=== PATIENT | female | born 1955 | race Caucasian/White ===

== ENCOUNTER 2024-10-04 15:14 | Inpatient (IN) | payer MEDICAID, OTHER ==
[~2024-10-04] VITALS: Ht 152.4 cm; Wt 71.0 kg
[~2024-10-04 15:14] MED LIST: ALEN70TA79 PO; CALC-26 PO; CITA10TA88 PO; FOLI1TAB87 PO; GABA-529 PO; LEVO125T8 PO; METO25TA6 PO; MIDO5TAB4 PO; PROT40 MT; SIMV-43 PO
[2024-10-04 16:14] LABS: BASOPHILS % 0.6 % (0.0-2.0); EOSINOPHILS % 4.3 % (0.0-5.0); HEMATOCRIT. 29.7 % (36.0-48.0); HEMOGLOBIN. 9.5 g/dL (12.0-16.0); LYMPHOCYTES % 16.2 % (20.0-50.0); MEAN PLATELET VOLUME 9.6 fl (7.4-10.4); MONOCYTES % 5.3 % (2.0-8.0); NEUTROPHILS % 73.6 % (40.0-76.0); PLATELET 90 x1000/uL (130-400); RED BLOOD CELL COUNT 2.97 mill/uL (4.2-5.4); RED CELL DISTRIBUTION WIDTH 16.4 % (11.6-14.6); WHITE BLOOD COUNT 3.2 x1000/uL (4.5-11.0)
[2024-10-04 16:24] LABS: POTASSIUM 3.8 mEq/L (3.5-5.1)
[2024-10-04 16:25] LABS: CALCIUM 9.5 mg/dL (8.7-10.4)
[2024-10-04 16:31] LABS: BG DEOXYHEMOGLOBIN 72.9 % (0.0-5.0)
[2024-10-04 16:32] LABS: BETA HYDROXYBUTYRATE 0.8 mMol/L (0.0-0.3)
[2024-10-04 16:44] LABS: CREATININE 4.5 mg/dL (0.6-1.0)
[2024-10-04] MEDS: SODIUM CHLORIDE 0.9% 1,000 ML IV ONE (16:49)
[2024-10-04 22:40] VITALS: BP 104/55; PULSE 115; RESP 18; TEMP 36.2
[2024-10-04 23:46] VITALS: BP 104/55; PULSE 115; RESP 18; TEMP 36.2; O2SAT 98
[2024-10-05] MEDS ORDERED: ONDANSETRON HCL 4MG/2ML INJ IV PRN (00:45)
[2024-10-05] MEDS ORDERED: HYDRALAZINE 20MG/ML VIAL IV PRN (00:45)
[2024-10-05] MEDS ORDERED: DEXTROSE 50% WATER 50ML SYRINGE IV PRN (00:45)
[2024-10-05] MEDS ORDERED: HYDROCODONE/ACETAMINOPHEN 5/325MG TABLET PO PRN (00:45)
[2024-10-05] MEDS ORDERED: IPRATROPIUM/ALBUTEROL 0.5-3(2.5)MG/3ML NEB NEB PRN (00:45)
[2024-10-05] MEDS ORDERED: ZOLPIDEM TARTRATE 5MG TABLET PO PRN (00:45)
[2024-10-05] MEDS: INSULIN LISPRO 100 UNITS/ML SUBCUT NR (01:01)
[2024-10-05 04:00] VITALS: BP 95/74; PULSE 89; RESP 18; TEMP 36.1; O2SAT 100
[2024-10-05 07:37] LABS: TROPONIN I HIGH SENSITIVITY 22 ng/L (3.0-34)
[2024-10-05] MEDS: LEVOTHYROXINE SODIUM 125MCG TABLET PO SCH (07:40)
[2024-10-05] MEDS: BLOOD SUGAR DIAGNOSTIC STRIP TEST SCH (07:40)
[2024-10-05] MEDS: INSULIN LISPRO 100 UNITS/ML SUBCUT SCH (07:48)
[2024-10-05 07:55] LABS: HEPATITIS B SURFACE ANTIGEN NEGATIVE (Negative)
[2024-10-05 08:15] VITALS: BP 94/60; PULSE 116; RESP 18; TEMP 36.1; O2SAT 100
[2024-10-05 08:17] LABS: HEPATITIS C AB NON REACTIVE (Neg) (Negative)
[2024-10-05] MEDS: METOPROLOL TARTRATE 25MG TABLET PO SCH (09:00)
[2024-10-05] MEDS: PANTOPRAZOLE SODIUM 40 MG/VIAL IV SCH (09:24)
[2024-10-05] MEDS: MIDODRINE HCL 5MG TABLET PO SCH (09:57)
[2024-10-05] MEDS: ENOXAPARIN 30MG/0.3ML SYR SUBCUT SCH (09:57)
[2024-10-05] MEDS: CITALOPRAM HYDROBROMIDE 10MG TABLET PO SCH (09:57)
[2024-10-05] MEDS: ACETAMINOPHEN 325MG TABLET PO PRN (09:57)
[2024-10-05 11:49] VITALS: BP 92/55; PULSE 79; RESP 20; TEMP 36.2; O2SAT 100
[2024-10-05 16:03] VITALS: BP 100/59; PULSE 81; RESP 20; TEMP 36.3; O2SAT 96
[2024-10-05] MEDS ORDERED: GLIP5TAB22 MT (16:39)
[2024-10-05] MEDS ORDERED: SITA50TA3 MT (16:39)
[2024-10-05 16:56] LABS: TROPONIN I HIGH SENSITIVITY 23 ng/L (3.0-34)
[2024-10-05 20:00] VITALS: BP 100/45; PULSE 80; RESP 20; TEMP 36.4; O2SAT 100
[2024-10-05] MEDS: GABAPENTIN 100MG CAPSULE PO SCH (21:23)
[2024-10-05] MEDS: ATORVASTATIN CALCIUM 10MG TABLET PO SCH (21:45)
[2024-10-06] VITALS (12 sets, daily range): BP systolic 100–115; BP diastolic 51–70; PULSE 60–88; RESP 16–20; TEMP 36.22512–37.1; O2SAT 99–100
[2024-10-06 06:27] LABS: POTASSIUM 3.6 mEq/L (3.5-5.1)
[2024-10-06 06:29] LABS: CALCIUM 9.1 mg/dL (8.7-10.4)
[2024-10-06 06:31] LABS: BASOPHILS % 0.7 % (0.0-2.0); EOSINOPHILS % 5.9 % (0.0-5.0); HEMATOCRIT. 29.9 % (36.0-48.0); HEMOGLOBIN. 9.8 g/dL (12.0-16.0); MEAN CORPUSCULAR HEMOGLOBIN 32.2 pg (28.0-32.0); MEAN CORPUSCULAR HGB CONC 32.8 g/dL (31.0-37.0); MEAN CORPUSCULAR VOLUME 98.1 fL (81.0-99.0); MEAN PLATELET VOLUME 9.4 fl (7.4-10.4); MONOCYTES % 7.7 % (2.0-8.0); NEUTROPHILS % 59.7 % (40.0-76.0); PLATELET 90 x1000/uL (130-400); RED BLOOD CELL COUNT 3.05 mill/uL (4.2-5.4); RED CELL DISTRIBUTION WIDTH 16.9 % (11.6-14.6); WHITE BLOOD COUNT 3.9 x1000/uL (4.5-11.0)
[2024-10-06 07:34] LABS: CREATININE 5.6 mg/dL (0.6-1.0)
== END 2024-10-06 11:30 | disposition home or self-care (01) | DRG 420 ==
LOC: ER 15:14 → EDBEDREQ 21:43 → EDBEDREQTM 21:43 → 7WST 22:49
PROVIDERS: ADMIT Internal Medicine; ATTEND Internal Medicine
PROC: 5A1D70Z Performance of Urinary Filtration, Intermittent, Less than 6 Hours Per Day (ICD-10-PCS; principal; 2024-10-06)
DX: E11.65 Type 2 diabetes mellitus with hyperglycemia (principal); I12.0 Hypertensive chronic kidney disease with stage 5 chronic kidney disease or end stage renal disease; E11.22 Type 2 diabetes mellitus with diabetic chronic kidney disease; K52.9 Noninfective gastroenteritis and colitis, unspecified; D64.9 Anemia, unspecified; E78.00 Pure hypercholesterolemia, unspecified; R55 Syncope and collapse; N18.6 End stage renal disease; Z99.2 Dependence on renal dialysis
CPT/HCPCS: 36415; 71045; 80048; 82010; 82375; 82803; 82962; 83036; 84484; 85025; 86705; 87340; 90935; 93005; 93970; 99285; J1650; J1815; J2470; J7030